=== PATIENT | female | born 1980 | race Asian ===

== ENCOUNTER 2020-01-01 01:26 | Emergency (ER) | payer MEDICAID ==
[2020-01-01] VITALS (7 sets, daily range): BP systolic 92–109; BP diastolic 53–64
[~2020-01-01] VITALS: Ht 165.1 cm; Wt 54.4 kg
--- NOTE | 2020-01-01 01:43 | Emergency Room Report ---
History of Present Illness General Chief Complaint: General Complaint Source: EMS Present Illness HPI Disclaimer: Please note that this report is being documented using [employer] technology. This can lead to erroneous entry secondary to incorrect interpretation by the dictating instrument. HPI: 31-year-old female with a reported history of bipolar disorder presents for medical evaluation. She arrives by EMS at the request of her family. Reportedly the patient has been missing for 1 week and was recently found. Family wanted a medical evaluation. The patient is not providing any information. She has very sunburnt but does not appear to be in distress. Patient appears very somnolent and does not want to participate in physical exam or history taking. PMH: Unable to obtain from patient, reported bipolar disorder by EMS PSH: Unable to obtain from patient Allergies: Unable to obtain from patient Social Hx: Unable to obtain from patient Allergies: Coded Allergies: No Known Allergies (Unverified , 01/01/20) COVID-19 Screening Contact w/high risk pt: No Experienced COVID-19 symptoms?: No COVID-19 Testing performed BENEFITS COORDINATOR: No Patient History Last Menstrual Period: n/a Nursing Documentation-PMH Past Medical History Deferred: No Family Available Review of Systems All Other Systems: negative except mentioned in HPI Physical Exam Vital Signs Date Time Temp Pulse Resp B/P (MAP) Pulse Ox O2 Delivery O2 Flow Rate FiO2 01/01/20 01:29 98.2 96 18 102/64 (77) 98 Room Air General: Somnolent but arousable to voice. No obvious distress. HEENT: NC/AT. EOMI. anicteric sclera Cardiovascular: RRR. S1 and S2 normal. No murmur appreciated Resp: Normal work of breathing. No cough, wheezing or crackles appreciated Abdomen: Abdomen is soft, nondistended. Nontender Skin: Intact. No abrasions, laceration or rash over the exposed skin. Sunburn over the face and extremities. MSK: Normal tone and bulk. Moving all extremities. No obvious deformity. Neuro: Somnolent but arousable. Not responding verbally. Moving extremities. Medical Decision Making Diagnostic Impression: Primary Impression: Amphetamine abuse Additional Impression: UTI (urinary tract infection) ER Course Is a 39-year-old female with a reported history of bipolar disorder presenting for medical evaluation at the request of family after missing for 7 days. Family is reportedly en route and may be able to obtain additional information from them however at this point patient is not providing any history. Possible alcohol intoxication, drug abuse, psychiatric break, dehydration, electrolyte abnormality. Will obtain broad labs, provide IV fluids. Patient is in stable condition at this point 0500: Labs have returned positive for amphetamines but otherwise largely within normal limits. Questionable UTI, will treat with Rocephin in the ED. The patient continues to receive IV fluids. Slightly more responsive though continues to metabolize. We will continue to monitor in the ED. if patient improves she may be discharged to follow-up with her PMD on outpatient basis. Signed out to oncoming physician, Dr. Ortiz, for reevaluation and final disposition. Laboratory Tests Test 01/01/20 02:00 01/01/20 03:56 White Blood Count 7.0 K/UL (4.8-10.8) Red Blood Count 5.18 M/UL (4.20-5.40) Hemoglobin 15.4 G/DL (12.0-16.0) Hematocrit 47.5 % (37.0-47.0) H Mean Corpuscular Volume 92 FL (80-99) Mean Corpuscular Hemoglobin 29.8 PG (27.0-31.0) Mean Corpuscular Hemoglobin Concent 32.5 G/DL (32.0-36.0) Red Cell Distribution Width 11.7 % (11.6-14.8) Platelet Count 270 K/UL (150-450) Mean Platelet Volume 6.3 FL (6.5-10.1) L Neutrophils (%) (Auto) 68.4 % (45.0-75.0) Lymphocytes (%) (Auto) 19.6 % (20.0-45.0) L Monocytes (%) (Auto) 9.7 % (1.0-10.0) Eosinophils (%) (Auto) 1.1 % (0.0-3.0) Basophils (%) (Auto) 1.2 % (0.0-2.0) Sodium Level 135 MMOL/L (136-145) L Potassium Level 3.9 MMOL/L (3.5-5.1) Chloride Level 97 MMOL/L (98-107) L Carbon Dioxide Level 25 MMOL/L (21-32) Anion Gap 13 mmol/L (5-15) Blood Urea Nitrogen 19 mg/dL (7-18) H Creatinine 0.9 MG/DL (0.55-1.30) Estimated Glomerular Filtration Rate > 60 mL/min (>60) Glucose Level 84 MG/DL (74-106) Calcium Level 9.0 MG/DL (8.5-10.1) Total Bilirubin 1.0 MG/DL (0.2-1.0) Aspartate Amino Transferase (AST) 28 U/L (15-37) Alanine Aminotransferase (ALT) 17 U/L (12-78) Alkaline Phosphatase 79 U/L (46-116) Total Protein 7.9 G/DL (6.4-8.2) Albumin 4.6 G/DL (3.4-5.0) Globulin 3.3 g/dL Albumin/Globulin Ratio 1.4 (1.0-2.7) Thyroid Stimulating Hormone (TSH) 1.130 uiU/mL (0.358-3.740) Salicylates Level < 0.2 ug/mL (2.8-20) L Acetaminophen Level < 2 MCG/ML (10-30) L Serum Alcohol < 3 mg/dL Urine Color Yellow Urine Appearance Clear Urine pH 5 (4.5-8.0) Urine Specific [place] 1.030 (1.005-1.035) Urine Protein 1+ (NEGATIVE) H Urine Glucose (UA) Negative (NEGATIVE) Urine Ketones 3+ (NEGATIVE) H Urine Blood 1+ (NEGATIVE) H Urine Nitrite Negative (NEGATIVE) Urine Bilirubin Negative (NEGATIVE) Urine Urobilinogen 1 MG/DL (0.0-1.0) H Urine Leukocyte Esterase 2+ (NEGATIVE) H Urine RBC 2-4 /HPF (0 - 2) H Urine WBC 5-10 /HPF (0 - 2) H Urine Squamous Epithelial Cells Few /LPF (NONE/OCC) Urine Bacteria Few /HPF (NONE) Urine Hyaline Casts 2-4 /LPF (NONE) H Urine Coarse Granular Casts 0-2 /LPF (NONE) H Urine Mucus Moderate /LPF (NONE/OCC) H Urine HCG, Qualitative Negative (NEGATIVE) Urine Opiates Screen Negative (NEGATIVE) Urine Barbiturates Screen Negative (NEGATIVE) Phencyclidine (PCP) Screen Negative (NEGATIVE) Urine Amphetamines Screen Positive (NEGATIVE) H Urine Benzodiazepines Screen Negative (NEGATIVE) Urine Cocaine Screen Negative (NEGATIVE) Urine Marijuana (THC) Screen Negative (NEGATIVE) Last Vital Signs Date Time Temp Pulse Resp B/P (MAP) Pulse Ox O2 Delivery O2 Flow Rate FiO2 01/01/20 01:29 98.2 96 18 102/64 (77) 98 Room Air Disposition: HOME, SELF-CARE Condition: Stable Scripts Olanzapine* (ZYPREXA*) 5 Mg Tablet 5 MG ORAL DAILY, #14 TAB Prov: Esau Ortiz MD 01/01/20 Cephalexin* (KEFLEX*) 500 Mg Capsule 500 MG ORAL EVERY 12 HOURS, #14 CAP 0 Refills Prov: Ariel Chin MD 01/01/20 Ariel Chin MD Jan 01, 2020 01:43
[2020-01-01 02:51] LABS: BASOPHILS % (AUTO) 1.2 % (0.0-2.0); EOSINOPHILS % (AUTO) 1.1 % (0.0-3.0); HEMATOCRIT 47.5 % (37.0-47.0); HEMOGLOBIN 15.4 G/DL (12.0-16.0); LYMPHOCYTES % (AUTO) 19.6 % (20.0-45.0); MEAN CORPUSCULAR VOLUME 92 FL (80-99); MONOCYTES % (AUTO) 9.7 % (1.0-10.0); NEUTROPHILS % (AUTO) 68.4 % (45.0-75.0); PLATELET COUNT 270 K/UL (150-450); RED BLOOD COUNT 5.18 M/UL (4.20-5.40); RED CELL DISTRIBUTION WIDTH 11.7 % (11.6-14.8)
[2020-01-01 03:06] LABS: ANION GAP 13 mmol/L (5-15); BLOOD UREA NITROGEN 19 mg/dL (7-18); CARBON DIOXIDE 25 MMOL/L (21-32); CHLORIDE 97 MMOL/L (98-107); CREATININE 0.9 MG/DL (0.55-1.30); POTASSIUM 3.9 MMOL/L (3.5-5.1); SODIUM 135 MMOL/L (136-145)
[2020-01-01 03:21] LABS: ALANINE AMINOTRANSFERASE 17 U/L (12-78); ALBUMIN 4.6 G/DL (3.4-5.0); ALBUMIN/GLOBULIN RATIO 1.4 (1.0-2.7); ALKALINE PHOSPHATASE 79 U/L (46-116); ASPARTATE AMINO TRANSFERASE 28 U/L (15-37)
[2020-01-01 04:35] LABS: APPEARANCE,URINE CLEAR; BILIRUBIN, URINE NEGATIVE (NEGATIVE); GLUCOSE, URINE (UA) NEGATIVE (NEGATIVE); KETONES,URINE 3+ (NEGATIVE); LEUKOCYTE ESTERASE ,URINE 2+ (NEGATIVE); NITRITE,URINE NEGATIVE (NEGATIVE); PH,URINE 5 (4.5-8.0); PROTEIN,URINE 1+ (NEGATIVE); UROBILINOGEN,URINE 1 MG/DL (0.0-1.0)
[2020-01-01 04:40] LABS: COLOR,URINE YELLOW
[2020-01-01] MEDS ORDERED: CEPHALEXIN500 MG ORAL (06:10)
[2020-01-01] MEDS ORDERED: cefTRIAXone 1 GM in NS 55 ML IVPB ONE (06:15)
[2020-01-01] MEDS ORDERED: Hydrocortisone 100mg Inj IV ONE (09:45)
[2020-01-01] MEDS ORDERED: ZYPREXA5 MG ORAL (10:38)
== END 2020-01-01 11:54 | disposition home or self-care (01) ==
LOC: EDBD 01:26 → EMR 01:38
DX: F15.10 Other stimulant abuse, uncomplicated (principal); N39.0 Urinary tract infection, site not specified; F31.9 Bipolar disorder, unspecified
CPT/HCPCS: 36415; 80053; 80307; 81003; 81025; 84443; 85025; 96361; 96365; 96375; G0480; G0481; J0696; J1720; J7030; Z7502; 99284

== ENCOUNTER 2020-02-21 16:38 | Emergency (ER) | payer MEDICAID ==
[~2020-02-21] VITALS: Ht 162.6 cm; Wt 74.8 kg
[~2020-02-21 16:38] MED LIST: CEPHALEXIN500 MG ORAL; ZYPREXA5 MG ORAL
--- NOTE | 2020-02-21 16:48 | Emergency Room Report ---
History of Present Illness General Chief Complaint: Overdose Source: EMS Present Illness HPI Disclaimer: Please note that this report is being documented using [employer] technology. This can lead to erroneous entry secondary to incorrect interpretation by the dictating instrument. HPI: 39-year-old female with a reported history of schizophrenia presents for evaluation of possible overdose. Patient is refusing to answer questions though is awake, makes good eye contact and appears to understand occasionally will respond nonverbally but is not providing any additional history at this time. Per EMS, they were called to the house by family who found the patient unconscious on the floor. On EMS arrival they found her reportedly pale, pinpoint pupils, respirations 6-8 min. No paraphernalia, pills, drugs or alcohol were found around the patient. No vomiting was reported. Patient was given 2 mg intranasal Narcan followed by 2 mg IV Narcan. She reportedly awoke after the IV dose was given. Vitals were stable en route that the patient refused to speak. Was seen in the emergency department by me 1 month ago with a similar presentation after she was found missing for 1 week. She was positive for amphetamines at that time. Upon arrival in transfer to [facility] patient had one episode of vomiting. Refusing to speak with anyone. PMH: Unable to obtain from patient, reported schizophrenia by EMS PSH: Unable to obtain from patient Allergies: Unable to obtain from patient Social Hx: Unable to obtain from patient, positive for amphetamines in the past Allergies: Coded Allergies: No Known Allergies (Unverified , 01/01/20) COVID-19 Screening Contact w/high risk pt: No Experienced COVID-19 symptoms?: No COVID-19 Testing performed RESIDENTIAL NURSE: No Nursing Documentation-PMH Past Medical History: No History, Except For Review of Systems All Other Systems: limited - Unable to obtain from patient due to lack of cooperation Physical Exam Vital Signs Date Time Temp Pulse Resp B/P (MAP) Pulse Ox O2 Delivery O2 Flow Rate FiO2 02/21/20 16:37 97.9 110 16 125/89 (101) 98 Room Air General: Awake, appears alert, makes good eye contact, nonverbal responses, no acute distress HEENT: NC/AT. EOMI. pupils 4 mm and reactive bilaterally. Moist mucous membranes. Cardiovascular: Tachycardic. S1 and S2 normal. No murmur appreciated Resp: Normal work of breathing. No cough, wheezing or crackles appreciated Abdomen: Abdomen is soft, nondistended. Nontender Skin: Intact. No abrasions, laceration or rash over the exposed skin. No apparent injection sites MSK: Normal tone and bulk. Moving all extremities. No obvious deformity. Neuro: Awake and seemingly alert. Not communicating verbally at this time. Slight tremor and anxious appearing Medical Decision Making Diagnostic Impression: Primary Impression: Substance abuse ER Course 39-year-old female with reported history of bipolar/schizophrenia presents for evaluation after suspected overdose. Per EMS she responded to intravenous Narcan arrives awake but not engaging verbally. She does not appear to be in acute distress no signs of overdose at this time. She had one episode of emesis on arrival and since then have been stable. Concern for substance abuse , psychiatric breakdown, UTI, electrolyte abnormality among other differential diagnoses. 224: Labs have returned within normal limits aside from elevated white count though this is nonspecific. Patient is afebrile, vital signs within normal limits. Urine drug screen is unremarkable. Patient is now awake, alert and responsive. She states that she was trying to buy methamphetamines to smoke today for recreational purposes and denies SI/HI. She believes she was not given the drug she requested and reported brief episode of hallucination but now is resolved. She denies attempt to hurt herself and states she wants to go home at this time. She has no other medical complaints. She has called her family to come take her home. I will refer her to outpatient drug resources. Stable for outpatient follow-up. Instructed to return with new or worsening symptoms. Laboratory Tests Test 02/21/20 16:50 02/21/20 17:39 02/21/20 21:58 White Blood Count 18.9 K/UL (4.8-10.8) H Red Blood Count 4.25 M/UL (4.20-5.40) Hemoglobin 13.0 G/DL (12.0-16.0) Hematocrit 40.6 % (37.0-47.0) Mean Corpuscular Volume 96 FL (80-99) Mean Corpuscular Hemoglobin 30.6 PG (27.0-31.0) Mean Corpuscular Hemoglobin Concent 32.1 G/DL (32.0-36.0) Red Cell Distribution Width 12.8 % (11.6-14.8) Platelet Count 225 K/UL (150-450) Mean Platelet Volume 7.4 FL (6.5-10.1) Neutrophils (%) (Auto) 82.5 % (45.0-75.0) H Lymphocytes (%) (Auto) 7.8 % (20.0-45.0) L Monocytes (%) (Auto) 7.8 % (1.0-10.0) Eosinophils (%) (Auto) 1.1 % (0.0-3.0) Basophils (%) (Auto) 0.8 % (0.0-2.0) Sodium Level 140 MMOL/L (136-145) Potassium Level 3.8 MMOL/L (3.5-5.1) Chloride Level 104 MMOL/L (98-107) Carbon Dioxide Level 24 MMOL/L (21-32) Anion Gap 12 mmol/L (5-15) Blood Urea Nitrogen 11 mg/dL (7-18) Creatinine 1.1 MG/DL (0.55-1.30) Estimated Glomerular Filtration Rate 55.6 mL/min (>60) Glucose Level 180 MG/DL (74-106) H Calcium Level 8.9 MG/DL (8.5-10.1) Total Bilirubin 0.1 MG/DL (0.2-1.0) L Aspartate Amino Transferase (AST) 21 U/L (15-37) Alanine Aminotransferase (ALT) 13 U/L (12-78) Alkaline Phosphatase 67 U/L (46-116) Total Protein 7.5 G/DL (6.4-8.2) Albumin 4.1 G/DL (3.4-5.0) Globulin 3.4 g/dL Albumin/Globulin Ratio 1.2 (1.0-2.7) Salicylates Level 0.7 ug/mL (2.8-20) L Acetaminophen Level < 2 MCG/ML (10-30) L Serum Alcohol < 3 mg/dL Urine Color Pale yellow Urine Appearance Clear Urine pH 6.5 (4.5-8.0) Urine Specific [place] 1.015 (1.005-1.035) Urine Protein 1+ (NEGATIVE) H Urine Glucose (UA) Negative (NEGATIVE) Urine Ketones 2+ (NEGATIVE) H Urine Blood 2+ (NEGATIVE) H Urine Nitrite Negative (NEGATIVE) Urine Bilirubin Negative (NEGATIVE) Urine Urobilinogen Normal MG/DL (0.0-1.0) Urine Leukocyte Esterase Negative (NEGATIVE) Urine RBC 2-4 /HPF (0 - 2) H Urine WBC 0-2 /HPF (0 - 2) Urine Squamous Epithelial Cells Few /LPF (NONE/OCC) Urine Bacteria Few /HPF (NONE) Urine HCG, Qualitative Negative (NEGATIVE) Urine Opiates Screen Negative (NEGATIVE) Urine Barbiturates Screen Negative (NEGATIVE) Phencyclidine (PCP) Screen Negative (NEGATIVE) Urine Amphetamines Screen Negative (NEGATIVE) Urine Benzodiazepines Screen Negative (NEGATIVE) Urine Cocaine Screen Negative (NEGATIVE) Urine Marijuana (THC) Screen Negative (NEGATIVE) Microbiology Date/Time Source Procedure Growth Status 02/21/20 17:05 Nasopharynx SARS-CoV-2 RdRp Gene Assay - Final Complete EKG Diagnostic Results EKG Time: 17:03 Rate: tachycardiac Rhythm: NSR ST Segments: no acute changes Other Impression Sinus tachycardia, normal axis, normal intervals, no ST segment changes. Rhythm Strip Diag. Results Rhythm Strip Time: 17:03 EP Interpretation: yes Rate: 115 Rhythm: NSR, no PVC's, no ectopy Last Vital Signs Date Time Temp Pulse Resp B/P (MAP) Pulse Ox O2 Delivery O2 Flow Rate FiO2 02/21/20 16:37 97.9 110 16 125/89 (101) 98 Room Air Disposition: HOME, SELF-CARE Condition: Stable Ariel Chin MD Feb 21, 2020 16:48
[2020-02-21 16:50] VITALS: BP 123/82
[2020-02-21 16:56] LABS: HEMATOCRIT 40.6 % (37.0-47.0); MEAN CORPUSCULAR VOLUME 96 FL (80-99); PLATELET COUNT 225 K/UL (150-450); RED BLOOD COUNT 4.25 M/UL (4.20-5.40); RED CELL DISTRIBUTION WIDTH 12.8 % (11.6-14.8); WHITE BLOOD COUNT 18.9 K/UL (4.8-10.8)
[2020-02-21 16:58] LABS: BASOPHILS % (AUTO) 0.8 % (0.0-2.0); EOSINOPHILS % (AUTO) 1.1 % (0.0-3.0); LYMPHOCYTES % (AUTO) 7.8 % (20.0-45.0); MONOCYTES % (AUTO) 7.8 % (1.0-10.0); NEUTROPHILS % (AUTO) 82.5 % (45.0-75.0)
[2020-02-21 17:58] LABS: ANION GAP 12 mmol/L (5-15); BLOOD UREA NITROGEN 11 mg/dL (7-18); CALCIUM 8.9 MG/DL (8.5-10.1); CARBON DIOXIDE 24 MMOL/L (21-32); CHLORIDE 104 MMOL/L (98-107); CREATININE 1.1 MG/DL (0.55-1.30); POTASSIUM 3.8 MMOL/L (3.5-5.1); SODIUM 140 MMOL/L (136-145)
[2020-02-21 18:02] LABS: ALANINE AMINOTRANSFERASE 13 U/L (12-78); ALBUMIN 4.1 G/DL (3.4-5.0); ALBUMIN/GLOBULIN RATIO 1.2 (1.0-2.7); ALKALINE PHOSPHATASE 67 U/L (46-116); ASPARTATE AMINO TRANSFERASE 21 U/L (15-37); BILIRUBIN,TOTAL 0.1 MG/DL (0.2-1.0)
[2020-02-21 22:19] LABS: APPEARANCE,URINE CLEAR; BILIRUBIN, URINE NEGATIVE (NEGATIVE); COLOR,URINE PALE YELLOW; GLUCOSE, URINE (UA) NEGATIVE (NEGATIVE); KETONES,URINE 2+ (NEGATIVE); LEUKOCYTE ESTERASE ,URINE NEGATIVE (NEGATIVE); NITRITE,URINE NEGATIVE (NEGATIVE); PH,URINE 6.5 (4.5-8.0); PROTEIN,URINE 1+ (NEGATIVE); UROBILINOGEN,URINE NORMAL MG/DL (0.0-1.0)
[2020-02-21 23:40] VITALS: BP 120/78
== END 2020-02-21 23:40 | disposition home or self-care (01) ==
LOC: EDBD 16:38 → EMR 17:04
DX: F19.10 Other psychoactive substance abuse, uncomplicated (principal); F20.9 Schizophrenia, unspecified; R00.0 Tachycardia, unspecified; F31.9 Bipolar disorder, unspecified
CPT/HCPCS: 36415; 80053; 80307; 81003; 81025; 85025; 93005; G0480; G0481; U0002; Z7502; 99284